=== PATIENT | female | born 1960 | race Caucasian/White ===

== ENCOUNTER 2023-04-13 19:53 | Emergency (ER) | payer OTHER ==
[2023-04-13] MEDS ORDERED: NORCO 5/325 MG PO ONE (20:25)
[2023-04-13] MEDS ORDERED: Adacel Vial IM ONE ×2 (20:26→20:32)
[2023-04-13] MEDS ORDERED: ZOFRAN ODT 4 MG PO ONE (20:26)
[2023-04-13] MEDS ORDERED: NORCO 5/325 MG ONE (20:32)
[2023-04-13] MEDS ORDERED: ZOFRAN ODT 4 MG ONE (20:32)
[2023-04-13 20:40] VITALS: BP 103/62
[2023-04-13 22:15] VITALS: PULSE 70; O2SAT 99
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
[2023-04-13] MEDS ORDERED: KEFLEX 500 MG PO ONE (22:46)
[2023-04-13] MEDS ORDERED: KEFLEX 500 MG ONE (22:57)
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
== END 2023-04-13 23:16 | disposition home or self-care (01) ==
LOC: ED 19:53
DX: S51.011A Laceration without foreign body of right elbow, initial encounter (principal); S40.011A Contusion of right shoulder, initial encounter; S80.01XA Contusion of right knee, initial encounter; V86.55XA Driver of 3- or 4- wheeled all-terrain vehicle (ATV) injured in nontraffic accident, initial encounter; R11.2 Nausea with vomiting, unspecified; I10 Essential (primary) hypertension; Z79.899 Other long term (current) drug therapy; Z28.310 Unvaccinated for COVID-19; Z72.0 Tobacco use
CPT/HCPCS: 12001; 70450; 71045; 72125; 73030; 73080; 73562; 90471; 90715; 99285; Q0162; A9270-GY